=== PATIENT | male | born 1985 | race Caucasian/White ===

== ENCOUNTER 2020-07-04 21:26 | Emergency (ER) | payer OTHER ==
[~2020-07-04] VITALS: Ht 172.7 cm; Wt 71.8 kg
[2020-07-04 21:26] VITALS: BP 124/87
--- NOTE | 2020-07-04 22:00 | RAD ---
XR EXAM OF ANKLE_RIGHT 3VIEWS DATE: 07/04/2020 9:51 PM INDICATION: Reason: R ANKLE PAIN,NO INJURY. HX OF GOUT / Spl. Instructions: / History: COMPARISON: None. FINDINGS: Bones: There is no evidence of acute fracture or dislocation. Joints: The ankle mortise is congruent. No widening of the distal tibiofibular syndesmosis. Miscellaneous: None. IMPRESSION: Normal exam Electronically signed by: Jon Penny MD (07/04/2020 9:58 PM) MANJU
--- NOTE | 2020-07-04 22:17 | PHYS DOC ---
General Adult EDM: Chief Complaint: ANKLE PROBLEM HPI: HPI: Patient is a 34-year-old male who presents with right ankle pain. Patient denies any injury. Patient states he has a history of gout believes he is having a flareup. Patient is able to ambulate on his own. Patient's only health history is gout. (LAXMI RETANA APRN) Review of Systems: Review of Systems: Constitutional: Denies fever or chills Eyes: Denies change in visual acuity HENT: Denies nasal congestion or sore throat Respiratory: Denies cough or shortness of breath Cardiovascular: Denies chest pain or edema GI: Denies abdominal pain, nausea, vomiting, bloody stools or diarrhea : Denies dysuria Musculoskeletal: Denies back pain or joint pain Integument: Right ankle redness, swelling, pain (LAXMI RETANA APRN) Allergies: Allergies: Allergies Coded Allergies Type Severity Reaction Last Updated Verified No Known Drug Allergies 07/04/20 No (LAXMI RETANA APRN) Physical Exam: PE: Constitutional: Well developed, well nourished, no acute distress, non-toxic appearance. [] Cardiovascular:Heart rate regular rhythm, no murmur [] Lungs & Thorax: Bilateral breath sounds clear to auscultation [] Abdomen: Bowel sounds normal, soft, no tenderness, no masses, no pulsatile masses. [] Skin: Warm, red, swelling right ankle Back: No tenderness, no CVA tenderness. [] Extremities: Right ankle tenderness, ROM intact, redness, swelling (LAXMI RETANA APRN) EKG: EKG: [] (LAXMI RETANA APRN) Radiology/Procedures: Radiology/Procedures: [] (LAXMI RETANA APRN) Heart Score: C/O Chest Pain: No Risk Factors: Risk Factors: DM, Current or recent (<one month) smoker, HTN, HLP, family history of CAD, obesity. Risk Scores: Score 0 - 3: 2.5% MACE over next 6 weeks - Discharge Home Score 4 - 6: 20.3% MACE over next 6 weeks - Admit for Clinical Observation Score 7 - 10: 72.7% MACE over next 6 weeks - Early Invasive Strategies (LAXMI RETANA APRN) Course & Med Decision Making: Course & Med Decision Making Pertinent Labs and Imaging studies reviewed. (See chart for details) [] 34-year-old male presents with right ankle pain. Denies injury. X-ray of right ankle ordered was negative for fracture. Patient has history of gout and reports he believes he is having a flareup. Patient given 600 mg ibuprofen. Patient instructed to take ibuprofen for pain. Patient requesting a work note for tomorrow due to not being able to run because of pain. Patient instructed follow-up with PCP for management of gout. Patient to take ibuprofen at home for discomfort. Patient's patient given p.o. discharge plan. (LAXMI RETANA APRN) Dragon Disclaimer: Rosalee Disclaimer: This electronic medical record was generated, in whole or in part, using a voice recognition dictation system. (LAXMI RETANA APRN) Attending Co-Sign The patient was seen and interviewed as well as examined at the bedside. The chart was reviewed. The case was discussed. Agree with the plan of care. (RAMESH PORTILLO DO) Departure Departure: Impression: Primary Impression: Gout attack Qualified Codes: M10.9 - Gout, unspecified Disposition: 01 HOME / SELF CARE / HOMELESS Condition: STABLE Referrals: PCP,NO (PCP) Patient Instructions: Gout, [id number] Additional Instructions: You were seen in the emergency room for a flareup of your gout. X-ray of right ankle was negative for fracture. You were given 600 mg of ibuprofen while in the emergency room. Please call your PCP tomorrow for a follow-up for further management. You can take ibuprofen at home for discomfort. Please return emergency room for worsening symptoms or concerns. EMERGENCY DEPARTMENT GENERAL DISCHARGE INSTRUCTIONS Thank you for coming to [facility] (ED) today and trusting us with you care. We trust that you had a positivie experience in our Emergency Department. If you wish to speak to the department management, you may call the director at [phone]. YOUR FOLLOW UP INSTRUCTIONS ARE FOLLOWS: 1. Do you have a private Doctor? If you do not have a private doctor, please ask for a resource list of physicians or clinics that may be able to assist you with follow up care. 2. The Emergency Physician has interpreted your x-rays. The X-Ray specialist will also review them. If there is a change in the findings, you will be notified in 48 hours when at all possible. 3. A lab test or culture has been done, your results will be reviewed and you will be notified if you need a change in treatment. ADDITIONAL INSTRUCTIONS AND INFORMATION: 1. Your care today has been supervised by a physician who is specially trained in emergency care. Many problems require more than one evaluation for a complete diagnosis and treatment. We recommend that you schedule your follow up appointment as recommended to ensure complete treatment of you illness or injury. If you are unable to obtain follow up care and continue to have a problem, or if your condition worsens, we recommend that you return to the ED. 2. We are not able to safely determine your condition over the phone nor are we able to give sound medical advice over the phone. For these safety reasons, if you call for medical advice we will ask you to come to the ED for further evaluation. 3. If you have any questions regarding these discharge instructions please call the ED at [phone]. SAFETY INFORMATION: In the interest of safety, wellness, and injury prevention; we encourage you to wear your sealbelt, if you smoke; quite smoking, and we encourage family to use a protective helmet for bicycling and other sporting events that present an increased risk for head injury. IF YOUR SYMPTOMS WORSEN OR NEW SYMPTOMS DEVELOP, OR YOU HAVE CONCERNS ABOUT YOUR CONDITION; OR IF YOUR CONDITION WORSENS WHILE YOU ARE WAITING FOR YOUR FOLLOW UP APPOINTMENT; EITHER CONTACT YOUR PRIMARY CARE DOCTOR, THE PHYSICIAN WHOSE NAME AND NUMBER YOU WERE GIVEN, OR RETURN TO THE ED IMMEDIATELY. LAXMI RETANA APRN July 04, 2020 22:17 RAMESH PORITLLO DO July 08, 2020 06:34
[2020-07-04] MEDS ORDERED: IBUPROFEN 600 MG TABLET. PO ONE (22:30)
== END 2020-07-04 22:25 | disposition home or self-care (01) ==
LOC: ER 21:26
DX: M10.9 Gout, unspecified (principal)
CPT/HCPCS: 73610; 99283-25